=== PATIENT | male | born 1945 | race Caucasian/White ===

== ENCOUNTER 2017-12-02 13:45 | Emergency (ER) | payer MEDICARE, BC ==
--- NOTE | 2017-12-02 14:30 | RAD ---
LEFT ANKLE 3 VIEWS: Date: 12/02/17 HISTORY: Injury with pain. FINDINGS: Soft tissue swelling is noted at the ankle. No evidence of fracture identified. IMPRESSION: No acute fracture identified. POS: DELON
== END 2017-12-02 14:33 | disposition home or self-care (01) ==
LOC: MADERS 13:45
DX: S93.402A Sprain of unspecified ligament of left ankle, initial encounter (principal); K21.9 Gastro-esophageal reflux disease without esophagitis; E78.5 Hyperlipidemia, unspecified; X58.XXXA Exposure to other specified factors, initial encounter